=== PATIENT | male | born 1960 | race Caucasian/White ===

== ENCOUNTER 2019-02-07 09:30 | Inpatient (IN) | payer MEDICARE, MEDICAID ==
[2019-02-07 10:22] VITALS: BP 140/98
[2019-02-07] MEDS ORDERED: Magnesium Hydroxide (MOM) 30 mL UDC PO PRN (11:04)
[2019-02-07] MEDS ORDERED: Maalox 30 mL Cup PO PRN (11:04)
[2019-02-07] MEDS: Ferrous Sulfate 325 MG TAB PO SCH (15:08)
[2019-02-07] MEDS: Bismuth Subsalicylate 236mL PO SCH ×2 (15:08→16:17)
[2019-02-07] MEDS ORDERED: Bismuth Subsalicylate 236mL PO PRN (17:37)
--- NOTE | 2019-02-07 22:39 | History & Physical ---
ADMIT DATE: INTERNAL MEDICINE CONSULTATION REFERRING PHYSICIAN: Dr. Solares. REASON FOR CONSULT: Medical management, history of hypertension. HISTORY OF PRESENT ILLNESS: The patient is a pleasant 58-year-old [place] gentleman with a history of essential hypertension and chronic anemia, crystal meth addiction, who was a direct admit [facility] given psychosis and apparent noncompliance with meds. The patient has been admitted to the [facility] for further management and care. The patient currently denies any medical complaints including no chest pain, shortness of breath, fever, chills, headaches. PAST MEDICAL HISTORY: As noted above. PAST SURGICAL HISTORY: None. FAMILY HISTORY: States that his father suffered from obsessive-compulsive disorder. SOCIAL HISTORY: He smokes about 3-5 cigarettes on a daily basis, has been smoking for about 40 years. He used to be heavier smoker in the past. Alcohol, he does not drink currently, but previously was a social drinker. Illicit drugs, crystal meth for the last 4 years or so. ALLERGIES: NKDA. OUTPATIENT MEDICATIONS: Tylenol 650 q.4 hours p.r.n., Pepto-Bismol 30 mL q.4 hours p.r.n. for GI upset, Benadryl 50 at bedtime p.r.n., Depakote 500 mg b.i.d., ibuprofen 400 mg q.6 hours p.r.n. for pain, lorazepam 2 mg q.4 hours p.r.n. for anxiety. He takes hydrochlorothiazide 25 every day, Cozaar 50 mg every day, aspirin 81 every day, iron sulfate 325 every day. REVIEW OF SYSTEMS: CONSTITUTIONAL: He denies any fever, chills, and no recent weight loss. CARDIAC: No chest pain or palpitations. PULMONARY: Denies any cough or phlegm production, no shortness of breath. GASTROINTESTINAL: No bowel habit changes. GENITOURINARY: No bladder habit changes. NEUROLOGIC: No changes in vision, no headaches, no syncope. PHYSICAL EXAMINATION: VITAL SIGNS: Temperature 97.5, pulse 84, blood pressure 140/98, respirations 18, O2 sats 100% on room air. GENERAL: A well-developed, well-nourished male, currently lying in bed, appears to be in no distress. HEAD AND NECK: Normocephalic, atraumatic. Pupils are reactive to light. Extraocular movements are intact. Oropharynx is moist and clear. NECK: There is no JVD or LAD. CARDIOVASCULAR: Regular rate and rhythm without any murmurs. LUNGS: Diminished at the bases, otherwise clear to auscultation bilaterally. ABDOMEN: Soft, supple, nontender, nondistended, normoactive bowel sounds. EXTREMITIES: Lower extremities: No pedal edema. NEUROLOGIC: Grossly intact, nonfocal. Cranial nerves 2-12 are within normal limits. He is able to move all 4 extremities with equal force and strength. LABORATORY DATA: White blood cell count 7.2, H and H 12/36, platelet count of 236. Glucose 94, BUN 22, creatinine 0.85, sodium 136, potassium 4.3, chloride 99, CO2 of 23, calcium 9.3, albumin 4.1, AST 33, ALT 20, total bilirubin 0.3, alkaline phosphatase 51, total protein 6.6. UA was essentially within normal limits. DIAGNOSTICS: None current. ASSESSMENT: 1. Acute psych decompensation. 2. History of psychosis. 3. History of crystal meth usage. 4. Essential hypertension. 5. Chronic anemia. PLAN: The patient has been admitted to the [facility] for further management and care. The patient will be kept on his current medications including his antihypertensives and he will continue with iron sulfate once a day. He will be placed on clonidine p.r.n. for SBP greater than 160. [facility]# [id number]
[2019-02-08] MEDS: Ferrous Sulfate 325 MG TAB PO SCH (08:52)
[2019-02-08] MEDS: Multivitamin Tab PO SCH (08:52)
[2019-02-08] MEDS ORDERED: Multivitamin Tab PO SCH (09:00)
[2019-02-08 09:23] LABS: CHOLESTEROL 181 mg/dL (<200); HDL -HIGH DENSITY LIPOPROTEIN 62 mg/dL (23-92); TRIGLYCERIDES 149 mg/dL (<150)
[2019-02-08] MEDS ORDERED: Haloperidol Lactate 5 mg/mL 1mL Vial IM STA (13:42)
[2019-02-08] MEDS ORDERED: Haloperidol Lactate 5 mg/mL 1mL Vial ONE (13:49)
[2019-02-08] MEDS ORDERED: Haloperidol Lactate 5 mg/mL 1mL Vial IM ONE (14:30)
--- NOTE | 2019-02-08 15:44 | Internal Medicine Prog Note ---
Internal Medicine Subjective - Subjective Service Date: 02/08/19 (comfortable) Patient seen and examined:: without staff Patient is:: awake Per staff patient has:: no adverse event Internal Medicine Objective - Results Recent Labs: Laboratory Last Values Triglycerides 149 mg/dL (<150) 02/08/19 08:50 Cholesterol 181 mg/dL (<200) 02/08/19 08:50 LDL Cholesterol Direct 90 mg/dL (75-193) 02/08/19 08:50 HDL Cholesterol 62 mg/dL (23-92) 02/08/19 08:50 - Physical Exam Vitals and I&O: Vital Signs Temp 97.4 F 02/08/19 06:38 Pulse 64 02/08/19 08:52 Resp 20 02/08/19 10:57 BP 133/77 02/08/19 08:52 Pulse Ox 99 02/08/19 06:38 Intake & Output 02/07/19 02/08/19 02/08/19 18:59 06:59 18:59 Intake Total 100 Balance 100 Weight (lbs) 84.368 kg Intake: Oral 100 Other: # Voids 1 Weight Source Patient stated Active Medications: Current Medications Acetaminophen (Tylenol) 650 mg PO Q4HR PRN PRN Reason: Mild Pain / Temp above 100 Stop: 04/08/19 11:03 Acetaminophen (Tylenol) 650 mg PO Q4HR PRN PRN Reason: Pain or Fever >101 Stop: 04/08/19 13:43 Al Hydrox/Mg Hydrox/Simethicone (Maalox) 30 ml PO Q4HR PRN PRN Reason: GI DISTRESS Stop: 04/08/19 11:03 Benztropine Mesylate (Cogentin) 1 mg PO BID [facility] Stop: 04/09/19 16:59 Bismuth Subsalicylate (Pepto-Bismol) 30 ml PO Q4HR PRN PRN Reason: GI DISTRESS Stop: 04/08/19 13:44 Diphenhydramine HCl (Benadryl) 50 mg PO HS PRN PRN Reason: Insomnia Stop: 04/08/19 13:43 Divalproex Sodium (Depakote Dr) 500 mg PO BID [facility]; Protocol Stop: 04/08/19 16:59 Last Admin: 02/08/19 08:52 Dose: 500 mg Ferrous Sulfate (Iron) 325 mg PO DAILY [facility] Stop: 04/08/19 13:59 Last Admin: 02/08/19 08:52 Dose: 325 mg Haloperidol (Haldol) 5 mg PO HS [facility]; Protocol Stop: 04/09/19 20:59 Hydrochlorothiazide (Hctz) 25 mg PO DAILY [facility] Stop: 04/08/19 13:59 Last Admin: 02/08/19 08:50 Dose: 25 mg Ibuprofen (Motrin) 400 mg PO Q6HR PRN PRN Reason: pain or temp 101.0 Stop: 04/08/19 13:43 Lorazepam (Ativan) 1 mg PO Q4HR PRN; Protocol PRN Reason: Agitation Stop: 04/09/19 13:19 Losartan Potassium (Cozaar) 50 mg PO DAILY [facility] Stop: 04/08/19 13:59 Last Admin: 02/08/19 08:52 Dose: 50 mg Magnesium Hydroxide (Milk Of Magnesia) 30 ml PO HS PRN PRN Reason: Constipation Multivitamins/Vitamin C (Theragran) 1 tab PO DAILY [facility] Stop: 04/09/19 08:59 Last Admin: 02/08/19 08:52 Dose: 1 tab Zolpidem Tartrate (Ambien) 5 mg PO HS PRN PRN Reason: Insomnia Stop: 04/08/19 11:03 Internal Medicine Assmt/Plan - Assessment Assessment: acute psych decompensation hx of schizoaffective d/o meth usage essentia;htn chronic anemia - Plan Plan: cont with current psych cont with current anti-htn cont with iron sulfate
[2019-02-09 07:06] LABS: A1C 5.1 % (4.8-5.6)
[2019-02-09] MEDS: Ferrous Sulfate 325 MG TAB PO SCH (08:34)
[2019-02-09] MEDS: Multivitamin Tab PO SCH (08:34)
--- NOTE | 2019-02-09 10:34 | Psychiatric Evaluation ---
DATE OF SERVICE: 02/08/2019 INITIAL PSYCHIATRIC EVALUATION IDENTIFICATION: The patient is on 72-hour hold for being gravely disabled and danger to self. HISTORY OF PRESENT ILLNESS: The patient is a 58-year-old male with history of schizoaffective disorder, apparently was placed on a hold for acting bizarre, was court ordered to attend day treatment. The patient has been agitated, angry, paranoid, yelling, and screaming, ended up at [facility], where he was evaluated then transferred to [facility]. The patient apparently has been refusing his Abilify, he is supposed to. He has been only taking Depakote and Luvox. PAST PSYCHIATRIC HISTORY: Multiple hospitalizations, chronic history of mental illness. PAST MEDICAL HISTORY: Medically cleared in the Emergency Room. PSYCHOSOCIAL HISTORY: The patient resides in a [facility] in [place]. SUBSTANCE ABUSE HISTORY: Denied. MENTAL STATUS EXAMINATION: The patient's speech is loud and pressured. Affect is dysphoric. The patient appears to be highly paranoid, suspicious, delusional and grandiose saying he is famous person. Insight is poor. Judgment impaired. The patient is oriented to time, place and person, knows he is in the hospital, approximate date. The patient's strength: The patient is passively accepting treatment. The patient's weakness, lack of insight. ASSESSMENT: Schizoaffective disorder. MEDICAL: As per medical history and H and P. PLAN: We will admit the patient for hospitalization. We will start individual and group therapy, assess psychopharmacological intervention. ESTIMATED LENGTH OF STAY: 5-7 days. CRITERIA FOR DISCHARGE: Improved condition. No psychosis, no agitation or aggressive behavior, better ____ safe disposition, outpatient treatment plan. [facility]# [id number]
--- NOTE | 2019-02-09 22:58 | Consultation ---
DATE OF CONSULTATION: 02/09/2019 REFERRING PHYSICIAN: Jens Solares MD TYPE OF CONSULTATION: Psychology. HISTORY OF PRESENT ILLNESS: The patient is a 58-year-old male who is being admitted for being gravely disabled as well as a danger to self. The patient has been put on a 72-hour hold. The following is by record review and by the patient's self-report. The staff at the patient's board and care reports the patient had become agitated and angry as well as paranoid. The patient had a number of yelling episodes as well. Staff also reports the patient had been refusing medications, specifically his Abilify. The patient denied any suicidal ideation or any homicidal ideation, plan or intention at the time of this clinical interview. The patient also denied any passive wish to or fleeting ideas of self-harm. The patient denied aggressive behavior. The patient was mostly concerned about his medications. PAST MEDICAL HISTORY: Please see history and physical by Dr. Crane. PAST PSYCHIATRIC HISTORY: The patient has a history of multiple previous psychiatric hospitalizations. The patient has a history of schizoaffective disorder. Records indicate the patient is under the care of a psychiatrist at his placement. SUBSTANCE ABUSE HISTORY: The patient denies any history of alcohol, tobacco or illicit drug use. PSYCHOSOCIAL HISTORY: The patient resides in a [facility] in [place]. The patient did not answer questions about occupational or educational history. The patient did not state whether he has any family members involved in his care. The record indicates the patient is disabled. Marital status Indicates the patient is ; however, the patient did not discuss this relationship. The patient did not answer questions about having any children. The patient did not answer questions about history of physical or sexual abuse. The patient denied any current legal problems; however, the patient stated that this hospitalization may create a legal problem for him. MENTAL STATUS EXAMINATION: The patient appears to be his stated age. The patient's attitude is guarded, but superficially cooperative. Eye contact is fair. Speech is pressured. Mood is dysphoric. Affect is mood congruent. The patient verbalized grandiose delusions, stating that he is famous but was unable to state the reason why he is famous. The patient appears to have some paranoid ideation and is questioning the motives of the medical care providers. The patient denied any auditory or visual hallucinations; however, this needs to be further evaluated. Staff reports the patient has episodes of talking to himself. Impulse control is inadequate. Concentration is fair. The patient was able to stay focused and answer the clinical questions with minimal accuracy. Sensorium is alert and oriented to self and place. The patient did not participate in the memory assessment. The patient did not participate in the interpretation of proverbs. The patient asked about medications that will be transferred upon discharge to his board and care. This is deferred to the primary care physician and psychiatrist. Insight is poor. Judgment is impaired. DIAGNOSTIC IMPRESSION: AXIS I: History of schizoaffective disorder. AXIS II: Deferred. AXIS III: Per Dr. Crane. TREATMENT PLAN: The patient has been seen by Dr. Solares for psychiatric evaluation and for the management of the patient's psychotropic medications. We will provide individual, supportive psychotherapy to include reality orientation, differentiation and integration. We will encourage the patient to demonstrate emotional and self-regulation by verbalizing his concerns versus acting out verbally and behaviorally. We will provide limit setting. We will provide a simple anger management skill for the patient to apply. We will provide stress management to assist the patient in increasing his frustration tolerance. We will provide coping strategies for phase of life issues as well as for chronic severe mental illness. We will encourage the patient on a daily basis to verbally contract for safety, i.e., no self-harm and no harm to others. Thank you, Dr. Solares for this consult and the opportunity to participate in this patient's care. [facility]# [id number] [facility]
--- NOTE | 2019-02-09 23:52 | Progress Notes ---
DATE: 02/09/2019 SUBJECTIVE: The patient was seen, remains anxious, still irritable, labile. He said he will take Haldol only on a smaller dose. Also was asking to go back on Luvox, which has helped with anxiety and OCD. The patient is oriented to time, place and person. The patient continues to have some paranoia. He is oriented x 3. ASSESSMENT: We will continue supportive measures. Continue hospitalization. Restart patient on Luvox 100 mg p.o. at bedtime. Continue supportive measures. Decrease Haldol to 2.5 mg p.o. at bedtime. [facility]# [id number]
[2019-02-10] MEDS: Ferrous Sulfate 325 MG TAB PO SCH (09:57)
[2019-02-10] MEDS: Multivitamin Tab PO SCH (09:57)
[2019-02-10] MEDS: Hydrocodone/APAP 5mg/325mg Tab PO PRN (20:01)
[2019-02-11] MEDS: Hydrocodone/APAP 5mg/325mg Tab PO PRN ×3 (06:48→19:36)
[2019-02-11] MEDS: Ferrous Sulfate 325 MG TAB PO SCH (09:14)
[2019-02-11] MEDS: Multivitamin Tab PO SCH (09:15)
--- NOTE | 2019-02-11 11:48 | Progress Notes ---
DATE: 02/10/2019 SUBJECTIVE: The patient was seen, reports fair sleep. Takes medications. The patient is still anxious, angry at times. The patient is denying feeling depressed. The patient's family came to visit him and I met with his sister and his brother. The patient is encouraged to remain compliant with medications. PLAN: We will continue stabilization. Continue supportive measures. Discussed his chronic mental illness and his placement in a [facility] in [place] and discussed compliance issues. ESTIMATED LENGTH OF STAY: 2-4 days. [facility]# [id number]
[2019-02-11] MEDS ORDERED: Benztropine 1 MG TAB PO SCH (21:00)
--- NOTE | 2019-02-11 22:14 | Progress Notes ---
DATE: 02/11/2019 SUBJECTIVE: The patient was seen, discussed with staff. Reports fair sleep. Denies feeling depressed. The patient has been taking his medications. The patient received Haldol Decanoate to help improve compliance. The patient is not having any auditory or visual hallucinations. His paranoia is decreasing. He is oriented x 3. ASSESSMENT: The patient slowly started to improve his anger outbursts and paranoia is decreasing. Psychoeducation was provided. Estimated length of stay 1-3 days. The [facility]# [id number]
[2019-02-12] MEDS: Hydrocodone/APAP 5mg/325mg Tab PO PRN ×2 (06:31→12:36)
[2019-02-12] MEDS: Ferrous Sulfate 325 MG TAB PO SCH (09:12)
[2019-02-12] MEDS: Multivitamin Tab PO SCH (09:12)
--- NOTE | 2019-02-12 20:24 | Discharge Summary ---
DATE OF DISCHARGE: 02/12/2019 REASON FOR HOSPITALIZATION: Schizoaffective disorder and acute decompensated state. HISTORY OF PRESENT ILLNESS: The patient is a 58-year-old male who was placed on a 72-hour hold for increased paranoia, agitation, acting bizarre. The patient resides in a [facility] and he was supposed to be attending day treatment. The patient apparently has been off his Abilify. The patient was hospitalized. HOSPITALIZATION COURSE: Individual milieu and group therapy was started. Medications were implemented. Haldol was given. The patient did not take Abilify. The patient received Haldol Decanoate. The patient did not have any EPS or sedation. His condition improved, paranoia had subsided down, agitation resolved. On 02/12/2019, the patient was discharged back to his facility. The patient has no suicidal or homicidal thoughts. The patient did not have any auditory or visual hallucinations. His thought process is logical. The patient denied feeling depressed or anxious and his sleep and appetite were fair. FINAL DIAGNOSIS: Schizoaffective disorder. MEDICAL: No active medical issues. DISPOSITION: Back to his [facility] care facility, a 10-day treatment. The patient is ambulatory and actually was thankful upon discharge. EXPECTED COURSE OF RECOVERY: The patient with chronic mental illness, but should do fair if he remains compliant to medications and treatment recommendations. [facility]# [id number]
== END 2019-02-12 15:15 | DRG 885 ==
LOC: GERO2 09:30
DX: F25.9 Schizoaffective disorder, unspecified (principal); F12.90 Cannabis use, unspecified, uncomplicated; I10 Essential (primary) hypertension; D64.9 Anemia, unspecified; F41.9 Anxiety disorder, unspecified; F42.9 Obsessive-compulsive disorder, unspecified; Z79.899 Other long term (current) drug therapy
CPT/HCPCS: 36415-UA; 80061-TC; 83036-90; J1200; J1630; J1631; J2060; Z7610